=== PATIENT | female | born 1935 | race Caucasian/White ===

== ENCOUNTER 2018-09-26 12:59 | Emergency (ER) | payer OTHER ==
[2018-09-26 13:28] VITALS: BMI 26.4
--- NOTE | 2018-09-26 13:42 | PDOC ---
History of Present Illness - General Chief Complaint: Pain, Acute Stated Complaint: SENT BY PCP Time Seen by Provider: 09/26/18 13:41 - History of Present Illness Initial Comments: 83 year old female with PMH of pacemaker placement and HTN presenting with epigastric abdominal pain and one episode of vomiting prior to coming here. States that she has abdominal pain quite frequently in her epigastrium that resolves with francesco justen but hasn't resolved this time with this remedy. When trying to describe the pain exactly she points across her upper abdomen at the border of epigastrium and chest then point to her back bilaterally. She originally stated that the pain started at 1 AM but later told us that it actually has been happening over the last few days. 09/26/18 14:30 Past History - Past Medical History Allergies/Adverse Reactions: Allergies Allergy/AdvReac Type Severity Reaction Status Date / Time No Known Allergies Allergy Verified 09/26/18 13:29 Home Medications: Ambulatory Orders Atorvastatin Calcium [Lipitor] 20 mg PO HS 09/26/18 Hydrochlorothiazide [Hctz -] 12.5 mg PO DAILY 09/26/18 Olmesartan Medoxomil [Benicar (Nf)] 40 mg PO DAILY 09/26/18 COPD: No HTN: Yes Hypercholesterolemia: Yes - Surgical History Cardiac Surgery: Yes (pcmkr) - Suicide/Smoking/Psychosocial Hx Smoking History: Never smoked Review of Systems - Review of Systems Constitutional: No: Chills, Diaphoresis HEENTM: No: Eye Pain, Blurred Vision Respiratory: No: Cough, Orthopnea, Shortness of Breath Cardiac (ROS): No: Chest Pain, Edema, Irregular Heart Rate ABD/GI: Yes: Nausea, Vomiting. No: Diarrhea : No: Burning, Dysuria, Discharge Integumentary: No: Lesions, Lumps Neurological: No: Headache, Numbness, Paresthesia Psychiatric: No: Anxiety, Depression Hematologic/Lymphatic: No: Anemia, Blood Clots, Easy Bleeding *Physical Exam - Vital Signs Last Vital Signs Temp Pulse Resp BP Pulse Ox 98.5 F 67 26 H 155/68 98 09/26/18 13:27 09/26/18 13:27 09/26/18 13:27 09/26/18 13:27 09/26/18 13:27 - Physical Exam General Appearance: Yes: Nourished, Appropriately Dressed, Apparent Distress HEENT: positive: EOMI, ETTA, Normal ENT Inspection, Normal Voice Neck: positive: Trachea midline, Normal Thyroid, Supple. negative: Tender, Rigid Respiratory/Chest: positive: Lungs Clear, Normal Breath Sounds. negative: Chest Tender, Respiratory Distress, Accessory Muscle Use Cardiovascular: positive: Regular Rhythm, Regular Rate Gastrointestinal/Abdominal: positive: Normal Bowel Sounds, Tender (epigastric and RUQ tenderness), Flat, Soft Lymphatic: negative: Adenopathy, Tenderness Musculoskeletal: positive: Normal Inspection. negative: CVA Tenderness, Decreased Range of Motion Extremity: positive: Normal Capillary Refill, Normal Inspection, Normal Range of Motion. negative: Tender Integumentary: positive: Normal Color, Dry, Warm Neurologic: positive: Fully Oriented, Alert, Normal Mood/Affect, Normal Response , Motor Strength 5/5 Moderate Sedation - Procedure Monitoring Vital Signs: Procedure Monitoring Vital Signs Temperature 98.5 F 09/26/18 13:27 Pulse Rate 67 09/26/18 13:27 Respiratory Rate 26 H 09/26/18 13:27 Blood Pressure 155/68 09/26/18 13:27 O2 Sat by Pulse Oximetry (%) 98 09/26/18 13:27 ED Treatment Course - LABORATORY CBC & Chemistry Diagram: 09/26/18 15:00 09/26/18 15:00 Medical Decision Making - Medical Decision Making 83 year old female with PMH of HTN presenting with acute on subacute RUQ / epigastric pain. She does also admit to pyelonephritis on the right side in the past. We were originally concerned for dissection vs. colecystitis vs. nephrolithiais. CTA abdomen/ pelvis demonstrating right sided hydropnephritis with multiple lesions in right ureter and bladder concerning for uroepithelial cancer. We Spoke to Augie and he felt that the patient could be discharged and followed up tomorrow as an outpatient in his office. Her pain improved with Tylenol and her labs and UA were not impressive for any other pathology. The patient and the family were explained the results and they understood thoroughly. They will be discharged with follow up instructions Tylenol for pain control instructions and return precautions. 09/26/18 18:37 *DC/Admit/Observation/Transfer Diagnosis at time of Disposition: Hydronephrosis Qualifiers: Hydronephrosis type: other Qualified Code(s): N13.39 - Other hydronephrosis - Discharge Dispostion Disposition: HOME Condition at time of disposition: Improved Decision to Admit order: No - Referrals Referrals: Williams Evans MD [Primary Care Provider] - Oleksandr Lopez MD [Staff Physician] - - Patient Instructions Printed Discharge Instructions: Hydronephrosis -- Adult Additional Instructions: Please use tylenol for your pain. You have a blockage of our kidney with a mass that we have to evaluate further. We are concerned that this could be a tumor or cancer. However, we have to do further workup. Please follow up with Dr. Lopez tomorrow with the information on this contact sheet. - Post Discharge Activity
--- NOTE | 2018-09-26 13:49 | PDOC ---
Attending Attestation - HPI HPI: 09/26/18 14:44 The patient is a 83 year old female with a significant PMH of pacemaker and HTN who presents to the emergency department with chest pain, epigastric pain and one episode of NB, NB vomit since 1AM this morning. Patient states she had sudden onset of these symptoms, and awoke her daughter up at 4:30AM to help her address these symptoms as they became severe. Patients daughter gave patient francesco justen and applies warm compresses to the chest and abdomen with no improvement of her symptoms. Patient reports the chest and epigastric pain is upper to her upper back. Patient notes she has had similar epigastric pain in the past that typically resolves after drinking francesco justen. Denies any abdominal surgeries. Patient states that two days ago she had lower lip numbness that resolved on its own. The patient denies shortness of breath, headache and dizziness. Denies fever, chills, nausea, diarrhea and constipation. Denies dysuria, frequency, urgency and hematuria. Allergies: NKA Past surgical history: pacemaker Social history: No reported alcohol, drug or cigarette use. PCP: Dr. Williams Evans <Galina Forrest - Last Filed: 09/26/18 14:44> - Physicial Exam PE: 09/26/18 15:16 Agree with resident exam. patient is alert and oriented and appears mildly uncomfortable. + mild epigastric tenderness. Abdomen is soft and non distended. Lugs are clear. Heart regular rate and rhythm. No CVA tenderness. - Medical Decision Making 09/26/18 15:37 Pt presents to the ED complaining of abdominal pain and chest pain that started abruptly last night. Appears uncomfortable in the ED. Differential includes AAA or disection, pancreatitis, biliary disease, less likely ACS. Will check labs and cardiac enzymes. GIven concern for dissection, will check CTA. Will give pain and nausea control. 09/26/18 16:17 <Norma Almeida - Last Filed: 09/26/18 16:20>
[2018-09-26] MEDS ORDERED: morphine CARPU-JECT 2 MG/1 ML DISP.SYRIN IVPUSH ONE (14:28)
[2018-09-26] MEDS ORDERED: ACETAMINOPHEN INJECTION 100 ML IVPB ONE (15:00)
[2018-09-26] MEDS ORDERED: MORPHINE SULFATE 2 MG/ML VIAL ONE (15:00)
[2018-09-26 15:08] LABS: BASO % 0.8 % (0-2.0); EOS % 0.8 % (0-4.5); HEMATOCRIT 39.7 % (32.4-45.2); HEMOGLOBIN 13.7 GM/dL (10.7-15.3); LYMPH % 24.1 % (8-40); MCHC 34.6 g/dl (32.0-36.0); MEAN CELL VOLUME 92.4 fl (80-96); MONO % 9.3 % (3.8-10.2); PLATELET COUNT 167 K/MM3 (134-434); RDW 13.1 % (11.6-15.6); WHITE BLOOD COUNT 7.7 K/mm3 (4.0-10.0)
[2018-09-26] MEDS ORDERED: ACETAMINOPHEN 1000 MG/100 ML VIAL (NON FORMULARY) IVPB ONE (15:21)
[2018-09-26 15:37] LABS: ALBUMIN 3.6 g/dl (3.4-5.0); ALK PHOS 64 U/L (45-117); AMYLASE 86 U/L (25-115); ANION GAP 7 MMOL/L (8-16); BILIRUBIN,DIRECT 0.1 mg/dL (0.0-0.2); BILIRUBIN,TOTAL 0.6 mg/dL (0.2-1); BLOOD UREA NITROGEN 24 mg/dL (7-18); CALCIUM 9.1 mg/dL (8.5-10.1); CHLORIDE 104 mmol/L (98-107); CO2 31 mmol/L (21-32); CREATININE 1.3 mg/dL (0.55-1.3); GLUCOSE,RANDOM 85 mg/dL (74-106); LIPASE 193 U/L (73-393); SGOT/AST 28 U/L (15-37); SGPT/ALT 19 U/L (13-61); SODIUM 143 mmol/L (136-145); TOT PROT 6.7 g/dl (6.4-8.2)
[2018-09-26 17:32] LABS: URINE APPEARANCE CLEAR; URINE BILIRUBIN NEGATIVE (<2.0 mg/dL); URINE COLOR STRAW; URINE GLUCOSE (UA) NEGATIVE (NEGATIVE); URINE KETONE NEGATIVE (NEGATIVE); URINE LEUK ESTERASE 1+ (NEGATIVE); URINE NITRITE NEGATIVE (NEGATIVE); URINE PROTEIN NEGATIVE (NEGATIVE); URINE UROBILINOGEN NEGATIVE mg/dL (0.2-1.0)
[2018-09-26 17:41] LABS: EPI CELLS RARE /HPF (FEW); URINE MUCUS RARE
[2018-09-26 18:51] VITALS: BP 130/63; PULSE 62; TEMP 98.8
--- NOTE | 2018-09-27 10:06 | EKG ---
Test Reason : Blood Pressure : / mmHG Vent. Rate : 062 BPM Atrial Rate : 063 BPM P-R Int : 210 ms QRS Dur : 080 ms QT Int : 428 ms P-R-T Axes : -43 015 028 degrees QTc Int : 434 ms Atrial-paced rhythm with prolonged AV conduction NONSPECIFIC ST AND T WAVE ABNORMALITY ABNORMAL ECG WHEN COMPARED WITH ECG OF 01-SEP-2009 03:12, T WAVE VARIATION Confirmed by THO DIOP, MARIBETH ([id number]) on 09/27/2018 10:06:13 AM Referred By: Confirmed By:MARIBETH NETTLES MD
== END 2018-09-26 20:32 | disposition home or self-care (01) ==
LOC: JER 12:59
PROC: 3E033NZ Introduction of Analgesics, Hypnotics, Sedatives into Peripheral Vein, Percutaneous Approach (ICD-10-PCS; principal; 2018-09-26)
DX: N13.39 Other hydronephrosis (principal); I10 Essential (primary) hypertension; Z95.0 Presence of cardiac pacemaker
CPT/HCPCS: 36415; 71275-TC; 74175-TC; 80053; 81003; 81015; 82150; 82248; 83605; 83690; 84484; 85025; 93005; 93010; 96374; 99284-25; J0131

== ENCOUNTER 2018-10-29 08:48 | Day surgery (SDC) | payer OTHER ==
[2018-10-28 12:47] VITALS: BMI 26.4
[2018-10-29] MEDS ORDERED: PROPOFOL 20 ML ONE ×2 (10:22)
[2018-10-29] MEDS ORDERED: LIDOCAINE HCL/PF 2% SDV 5ML VIAL ONE (10:22)
[2018-10-29] MEDS ORDERED: DESFLURANE GAS 240 ML BOTTLE IH ONE (10:24)
[2018-10-29] MEDS ORDERED: LIDOCAINE HCL 2% (20ML MULTI-DOSE VIAL) NR ONE (10:24)
[2018-10-29] MEDS ORDERED: ceFAZolin SODIUM 1 GM VIAL IVPB ONE (10:37)
--- NOTE | 2018-10-29 11:15 | OP ---
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 4 cm wide X 5cm height. Post-Operative Diagnosis: Same as Pre-op Surgeon: Acacia Evans Anesthesia: General Specimens Removed: urine cytology, Bladder tumor chips Estimated Blood Loss (mls): 10 Drains & Tubes with Location: 20 Fr 5cc mendez Drains, Volume Out (mls): 0 Blood Volume Replaced (mls): 0 Fluid Volume Replaced (mls): 0 Operative Report Dictated: Yes
[2018-10-29] MEDS ORDERED: oxyCODONE HCL 5 MG TABLET PO PRN (11:18)
[2018-10-29] MEDS ORDERED: PROMETHAZINE HCL 25 MG/1 ML VIAL IVPUSH PRN (11:18)
[2018-10-29] MEDS ORDERED: ONDANSETRON 4 MG/2 ML VIAL IVPUSH PRN (11:18)
--- NOTE | 2018-10-29 11:43 | OP ---
DATE OF OPERATION: 10/29/2018 PREOPERATIVE DIAGNOSIS: Bladder tumor. POSTOPERATIVE DIAGNOSIS: Bladder tumor. OPERATIVE PROCEDURE: Transurethral resection of bladder tumor, attempted right ureteral orifice cannulization. ANESTHESIA: General. Under above-stated anesthesia patient was prepped and draped in the usual sterile manner. She was placed in the dorsal lithotomy position. Inspection of the external genitalia revealed atrophic vaginitis with meatal stenosis. Therefore, the meatus was calibrated to 12-Ukrainian and dilated to 28-Ukrainian without difficulty or bleeding. A cystoscope was introduced. Urine was collected for cytology. Inspection of the bladder revealed a large tumor at the right lateral wall and right hemitrigone of the bladder. Left ureteral orifice was within normal limits with efflux of clear urine. Right ureteral orifice was unable to be visualized. A resectoscope was inserted and resection of the tumor was performed in the usual fashion. Tumor chips were evacuated with an 422 Group evacuator. The base was cauterized. No active bleeding was noted. A 20-Ukrainian Weathers 5-mL balloon was inserted. This was connected to a bag. The patient tolerated the procedure well. She returned to the recovery room in good condition. Zach [id number]
[2018-10-29 12:42] VITALS: TEMP 97.5
[2018-10-29 14:00] VITALS: BP 140/79; PULSE 62
--- NOTE | 2018-11-02 18:11 | PATH ---
Cytology Non-Gynecological Report Patient Name: NOREEN COOPER [facility]. Rec. #: [id number] /Age/Gender: 1935 (Age: 83) / F Account: [id number] Location: [facility] Taken: 10/29/2018 Received: 10/29/2018 Reported: 11/02/2018 Physicians: Acacia Evans M.D. Specimen(s) Received URINE Clinical History Bladder mass Final Diagnosis URINE FOR CYTOLOGY: SATISFACTORY FOR EVALUATION. ATYPICAL UROTHELIAL FRAGMENTS. RARE CLUSTERS AND FRAGMENTS OF UROTHELIAL CELLS WITH INCREASED NUCLEUS TO CYTOPLASMIC RATIO AND MILD NUCLEAR IRREGULARITIES. SEE COMMENT. Comment: Presence of urothelial fragments is suggestive of a papillary neoplasm. See concurrent bladder biopsy ([id number]). Electronically Signed Samaria Cotton M.D. Gross Description Approximately 50 cc of yellow fluid received fresh. One cytofunnel prepared and Pap stained.
--- NOTE | 2018-11-02 18:27 | PATH ---
Surgical Pathology Report Patient Name: NOREEN COOPER [facility]. Rec. #: [id number] /Age/Gender: 1935 (Age: 83) / F Account: [id number] Location: [facility] Taken: 10/29/2018 Received: 10/29/2018 Reported: 11/02/2018 Physicians: Acacia Evans M.D. Specimen(s) Received BLADDER TUMOR Clinical History Bladder tumor, hydronephrosis Final Diagnosis BLADDER TUMOR, TRANSURETHRAL RESECTION OF BLADDER TUMOR: HIGH GRADE PAPILLARY UROTHELIAL CARCINOMA, NON-INVASIVE. MUSCULARIS PROPRIA IDENTIFIED. NO FLAT CARCINOMA IN SITU (CIS) IDENTIFIED.SEE COMMENT. Comment: The biopsy shows focal high grade areas in a background of low grade urothelial carcinoma. No definitive invasion identified. Deeper levels have been examined. Findings discussed with Dr. Padilla. Case seen interdepartmentally. See concurrent cytology ([id number]). Electronically Signed Samaria Lawton M.D. Gross Description Received in formalin labeled "bladder tumor," is a 1.5 x 1.2 x 0.3 cm aggregate of multiple ugalde, irregular to polypoid portions of soft tissue. The formalin is filtered and the specimen is entirely submitted in one cassette. /10/29/2018 saudi10/29/2018
== END 2018-10-29 14:15 | disposition home or self-care (01) ==
LOC: JASU-SURG 08:48
PROVIDERS: ATTEND Urology
PROC: 0T5B8ZZ Destruction of Bladder, Via Natural or Artificial Opening Endoscopic (ICD-10-PCS; principal; 2018-10-29 10:00)
DX: C67.9 Malignant neoplasm of bladder, unspecified (principal)
CPT/HCPCS: 88108; 88305-TC; 94760

== ENCOUNTER 2019-02-25 11:00 | Day surgery (SDC) | payer OTHER ==
[2019-02-24 12:09] VITALS: BMI 26.4
[2019-02-25] MEDS ORDERED: LIDOCAINE HCL/PF 2% SDV 5ML VIAL ONE (12:17)
[2019-02-25] MEDS ORDERED: PROPOFOL 20 ML ONE ×2 (12:17)
[2019-02-25] MEDS ORDERED: ceFAZolin SODIUM 1 GM VIAL IVPB ONE (12:25)
[2019-02-25] MEDS ORDERED: KETOROLAC TROMETHAMINE 30 MG/1 ML VIAL ONE (12:48)
[2019-02-25] MEDS ORDERED: ceFAZolin SODIUM 1 GM VIAL ONE (12:48)
[2019-02-25] MEDS ORDERED: DEXAMETHASONE SOD PHOSPHATE 4 MG/1 ML VIAL ONE (12:49)
[2019-02-25] MEDS ORDERED: ONDANSETRON 4 MG/2 ML VIAL IVPUSH PRN (13:05)
[2019-02-25] MEDS ORDERED: PROMETHAZINE HCL 25 MG/1 ML VIAL IVPUSH PRN (13:05)
[2019-02-25] MEDS ORDERED: oxyCODONE HCL 5 MG TABLET PO PRN (13:05)
--- NOTE | 2019-02-25 13:56 | OP ---
Operative Note - Note: Operative Date: 02/25/19 Pre-Operative Diagnosis: rt. hydronephrosis, h/o tcc off bladder, s/p turbt Operation: cysto, dil. attempted rt. retrograde pyelogram, and ureteroscopy. Findings: bladder scar tissue at site of previous turbt and meatal stenosis and atrophic vaginitis Post-Operative Diagnosis: Same as Pre-op Surgeon: Acacia Evans Anesthesia: General Specimens Removed: urine for cytology Estimated Blood Loss (mls): 0 Drains & Tubes with Location: none Drains, Volume Out (mls): 0 Blood Volume Replaced (mls): 0 Fluid Volume Replaced (mls): 0 Operative Report Dictated: Yes
[2019-02-25 15:25] VITALS: BP 151/82; PULSE 64; TEMP 97.8
--- NOTE | 2019-02-25 16:02 | CONS ---
DATE OF CONSULTATION: DATE OF DICTATION: 02/25/2019 HISTORY OF PRESENT ILLNESS: The patient is an 83-year-old female with history of right flank pain. An ultrasound of the kidneys revealed a right severe hydroureteronephrosis with no point of obstruction. PAST MEDICAL HISTORY: The patient does have history of high blood pressure. She also has hyperlipidemia. ALLERGIES: She denies any allergies. PAST SURGICAL HISTORY: She had a permanent pacemaker placed in 2008. She is status post a cystoscopy with a TUR of bladder tumor in October 2018. REVIEW OF SYSTEMS: She denies any hematuria. PHYSICAL EXAMINATION: General: A well-developed, alert, oriented female in no apparent distress. Head, eyes, ears, nose and throat: Normal. Chest: Clear. Heart: Regular. Abdomen: Soft. There is some mild right CVA tenderness. Extremities: Full range of motion, with no cyanosis, clubbing or edema. MEDICATIONS: The patient is on Benicar for her high blood pressure. PLAN: The procedure has been explained to the patient, as well as the patient's daughter, and she agrees. Zach [id number]
--- NOTE | 2019-02-26 04:34 | OP ---
DATE OF OPERATION: DATE OF DICTATION: 02/25/2019 PREOPERATIVE DIAGNOSIS: Patient is an 83-year-old female with a history of transitional cell carcinoma of urinary bladder, status post TUR bladder tumor, history of right hydroureteronephrosis. OPERATIVE PROCEDURE: Cystoscopy, attempted right retrograde pyelogram, attempted ureteroscopy, urethral dilation, collection of urine for cytology. ANESTHESIA: General. DESCRIPTION OF PROCEDURE: Under above-stated anesthesia patient was prepped and draped in the usual sterile manner. She was placed in the dorsal lithotomy position. Inspection of the external genitalia revealed atrophic vaginitis. There was a grade 1 cystocele and meatal scarring. The meatus was calibrated to 16-Turkish. This was dilated to 28-Turkish with Gladstone sounds without difficulty or bleeding. The cystoscope was introduced under direct vision. Urine was collected for cytology and C & S. Inspection of the bladder revealed a generalized hyperemia. Left ureteral orifice was visualized. Efflux of urine was clear. There was a grade 2 trabeculation. No overt lesions or calculi were seen. Inspection of the right ureteral orifice was unsuccessful. Multiple attempts at cannulating what appeared to be a right ureteral orifice were unsuccessful. Ureteroscope was introduced and under direct vision multiple hypertrophied muscle bundles were poked with a curved glidewire to find the right ureteral orifice. This was also unsuccessful. Patient was then given methylene blue and 15 minutes later blue efflux of urine was noted from the left side. No efflux of urine was seen from the right side. Therefore, the bladder was emptied. The scope was removed. The patient tolerated the procedure well. She will be scheduled for a right percutaneous nephrostomy with possible internalization of a double-J stent. Will schedule with Dr. Alvarez, interventional radiologist. Zach [id number]
--- NOTE | 2019-03-01 20:10 | PATH ---
Cytology Non-Gynecological Report Patient Name: NOREEN COOPER Med. Rec. #: [id number] /Age/Gender: 1935 (Age: 83) / F Account: [id number] Location: [facility] Taken: 02/25/2019 Received: 02/25/2019 Reported: 03/01/2019 Physicians: Acacia Evans M.D. Specimen(s) Received URINE Clinical History Bladder tumor Final Diagnosis URINE FOR CYTOLOGY: SATISFACTORY FOR EVALUATION. NEGATIVE FOR HIGH GRADE UROTHELIAL CARCINOMA. FEW UROTHELIAL FRAGMENTS. SCATTERED UROTHELIAL CELLS AND FEW UROTHELIAL FRAGMENTS PRESENT. Comment: Urothelial fragments are suggestive of prior instrumentation. Suggest clinical correlation. History of bladder carcinoma noted. Prior materials are noted. Electronically Signed Samaria Cotton M.D. Gross Description Approximately 100 cc of yellow fluid received fresh. One cytofunnel prepared and Pap stained. One cellblock prepared.
== END 2019-02-25 15:05 | disposition home or self-care (01) ==
LOC: JASU-SURG 11:00
PROVIDERS: ATTEND Urology
PROC: BT1DYZZ Fluoroscopy of Right Kidney, Ureter and Bladder using Other Contrast (ICD-10-PCS; principal; 2019-02-25 12:30)
DX: N13.39 Other hydronephrosis (principal); Z85.51 Personal history of malignant neoplasm of bladder; Z53.8 Procedure and treatment not carried out for other reasons
CPT/HCPCS: 76000-TC-FY; 88108; 94760

== ENCOUNTER 2020-04-28 09:33 | Emergency (ER) | payer OTHER ==
[2020-04-28 09:46] VITALS: TEMP 97.9; BMI 27.3
[2020-04-28] MEDS ORDERED: LIDOCAINE 5% TOPICAL PATCH TP ONE (10:38)
[2020-04-28] MEDS ORDERED: ACETAMINOPHEN 325 MG TABLET (FP) PO ONE (10:38)
[2020-04-28] MEDS ORDERED: LIDOCAINE 5% TOPICAL PATCH ONE (10:50)
[2020-04-28] MEDS ORDERED: ACETAMINOPHEN 325 MG TABLET (FP) ONE (10:50)
--- NOTE | 2020-04-28 11:03 | PDOC ---
History of Present Illness - General Chief Complaint: Pain Stated Complaint: PAIN Time Seen by Provider: 04/28/20 11:03 History Source: Patient, Family (Daughter present at bedside.) Exam Limitations: No Limitations - History of Present Illness Initial Comments: 84 y/o female presenting to [facility] ER complaining of unchanged right hip pain for the past month. Pain is localized to the lateral aspect of the hip without radiation to the right leg, midline, or abdomen. Made worse with movement and direct palpation. Also reports the pain is worse at night when in bed. Denies trauma to the area, saddle anesthesia, bowel incontinence, urinary retention, or paresthesia in her lower extremities. Was evaluated at [facility] ED last week. 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 Pt continues to have regular bowel movements without change in symptoms. Past History - Medical History Allergies/Adverse Reactions: Allergies Allergy/AdvReac Type Severity Reaction Status Date / Time No Known Allergies Allergy Verified 04/28/20 09:46 Home Medications: Ambulatory Orders Olmesartan Medoxomil [Benicar -] 40 mg PO DAILY 09/26/18 Cyclobenzaprine HCl [Flexeril -] 10 mg PO HS #7 tablet 04/28/20 Anemia: No Asthma: No Cancer: No Cardiac Disorders: Yes (arrythmia) CVA: No COPD: No CHF: No Dementia: No Diabetes: No GI Disorders: No Disorders: Yes HTN: Yes Hypercholesterolemia: Yes Liver Disease: No Seizures: No Thyroid Disease: No - Surgical History Cardiac Surgery: Yes (Pacemaker 2009 [employer]) - Reproductive History Is Patient Now?: No - Psycho-Social/Smoking History Smoking History: Unknown if ever smoked - Substance Abuse Hx (Audit-C & DAST Scrn) How often the patient has a drink containing alcohol: Never Score: In Men: 4 or > Positive; In Women: 3 or > Positive: 0 Screen Result (Pos requires Nsg. Audit-10AR): Negative In the last yr the pt used illegal drug/Rx for NonMed reason: No Score: Yes response is considered Positive: 0 Screen Result (Positive result requires Nsg. DAST-10): Negative Review of Systems - Review of Systems Able to Perform ROS?: Yes Comments:: 10 point review of systems completed. All systems negative except as noted above. *Physical Exam - Vital Signs Last Vital Signs Temp Pulse Resp BP Pulse Ox 97.9 F 72 20 165/90 99 04/28/20 09:55 04/28/20 09:55 04/28/20 09:55 04/28/20 09:55 04/28/20 09:55 - Physical Exam Vital signs and nursing notes reviewed. Constitutional- Well-developed, well-nourished adult female in no acute distress or obvious discomfort. Found semi-fowlers on hospital bed. Answered all questions appropriately and completely. Head- Normocephalic. No obvious external signs of trauma. Eyes- Sclerae white. Neck- Supple, trachea is midline. Cardiovascular / Chest- Regular rate. Respiratory- Breathing unlabored. Speaking in multi-word responses without pausing. Gastrointestinal- abdomen is soft, non-tender, non-distended. No overlying skin lesions or obvious signs of trauma. Neuro- Alert and oriented x4. Moving all four extremities spontaneously. No facial asymmetry. No slurred speech. Sensation to all four extremities intact. Lower extremity: Proximal and distal strength 5/5. Plantar flexion and dorsiflexion 5/5. MSK- Diffuse tenderness to palpation along the lateral aspect of the right hip. Also made worse with flexion and extension of the right hip. No sciatica. Skin- Warm, dry, and intact. No bruising, rashes, or other lesions overlying right hip and pelvis. Back- No midline thoracic or lumbar spinal tenderness. No paraspinal tenderness. No overlying skin lesions. - No R or L CVA tenderness. Psych- Affect- appropriate. Mood- normal. Speech was non-labored, non- pressured. ED Treatment Course - RADIOLOGY Radiology Studies Ordered: Category Date Time Status HIP & PELVIS-RIGHT [RAD] Stat Radiology 04/28/20 10:38 Ordered - Medications Given in the ED: ED Medications Discontinued Medications Generic Name Dose Route Start Last Admin Trade Name Freq PRN Reason Stop Dose Admin Acetaminophen 650 mg 04/28/20 10:38 04/28/20 10:56 Tylenol - PO 04/28/20 10:39 650 mg ONCE ONE Administration Lidocaine 1 patch 04/28/20 10:38 04/28/20 10:56 Lidoderm Patch - TP 04/28/20 10:39 1 patch ONCE ONE Administration Medical Decision Making - Medical Decision Making 84 y/o female presenting with acute on chronic atraumatic right hip pain. Reproducible with palpation and flexion/extension of the leg. Suspect likely osteoarthritis versus MSK strain. Low suspicion for fracture, dislocation, nephrolithiasis, or other intra-abdominal process. Plain films remarkable for degenerative arthritic changes without fracture or dislocation per ED wet read. Radiology report pending. UA unremarkable for nitrites, leukocyte esterase, or pyuria. Low suspicion for acute cystitis. Pt given Tylenol, Lidoderm patch, Motrin, and Flexeril. Reports improvement with pain. Will prescribe a short course of Flexeril and provide orthopedic clinic referral. Case discussed with ED Attending Dr. Rosen. Preston García M.D., PGY3 Emergency Medicine Resident Discharge - Discharge Information Problems reviewed: Yes Clinical Impression/Diagnosis: Right hip pain Condition: Good Disposition: HOME - Admission No - Additional Discharge Information Prescriptions: Cyclobenzaprine HCl [Flexeril -] 10 mg PO HS #7 tablet - Follow up/Referral Referrals: Williams Evans MD [Primary Care Provider] - Kimo Houston DO [Staff Physician] - - Patient Discharge Instructions Patient Printed Discharge Instructions: Cyclobenzaprine, DI for Hip Pain Additional Instructions: You were seen today for right hip pain. 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 It could also be a muscle spasm. I have sent a prescription for Flexeril to your pharmacy. Take as directed on the package insert. Do not exceed the recommended dosage. This may make you drowsy. You can also take over the counter Tylenol as needed for pain. Take as directed on the package insert. Do not exceed the recommended dosage. You should follow up with your primary care physician within the next two to three weeks. You can follow up with an orthopedic doctor as well. I have entered a referral for you to see Dr. Houston. You will need to call to make an appointment. The number is included in this packet. A copy of todays results are attached to this packet. Take it to the appointment so your doctor can review them. Return to the ED for new or worsening symptoms. Print Language: CHINESE - Post Discharge Activity
[2020-04-28] MEDS ORDERED: IBUPROFEN 400 MG TABLET (FP) PO ONE ×2 (12:46→12:49)
[2020-04-28] MEDS ORDERED: CYCLOBENZAPRINE HCL 10 MG TABLET (FP) PO ONE (12:47)
[2020-04-28] MEDS ORDERED: CYCLOBENZAPRINE HCL 10 MG TABLET (FP) ONE (12:49)
--- NOTE | 2020-04-28 12:57 | PDOC ---
Documentation entered by Bouchra Woodall SCRIBE, acting as scribe for Alexander Rosen MD. Alexander Rosen MD: This documentation has been prepared by the scribe, Bouchra Woodall SCRIBE, under my direction and personally reviewed by me in its entirety. I confirm that the documentation accurately reflects all work, treatment, procedures, and medical decision making performed by me. Attending Attestation - Resident Resident Name: BishopPreston - ED Attending Attestation I have performed the following: I have examined & evaluated the patient, The case was reviewed & discussed with the resident, I agree w/resident's findings & plan, Exceptions are as noted - HPI HPI: 04/28/20 11:08 84y F hx of HTN, presents with complaint of R hip pain. Pt notes pain started several weeks ago, it is worse with ambulation and sometimes worse at night, was seen at [facility] and had a neverage hip xray. Pain persitsent so they cam to the ED for evaluation. No fc/, focal numbness/tingling/weakness, urinary or bowel symtoms. No previous trauma/falls/injuries. Pt notes the pain is worse in the R hip - primarily in the buttock region and in the R anterior hip, worse with hip flexion. Pt doess note the pain sometimes starts spontaneously at night when she is in bed. - Physicial Exam PE: 04/28/20 12:57 On exam pt in distress, MSK: no focal bony tenderness in cervial, thoracic, or lumbar spine skin: no rash to affected area ext: no edema, no pain with passive ROM, no focal bony tenderenss on hip, pain with active hip flexion against resistance. some pain with exteinos of hip against resistance abd: no abd tenderness/rebound/guarding, no cva tenderness - Medical Decision Making 04/28/20 12:57 suspect muscle spasm, seemed to be exacerbated when the pt was extending her hip pushing herself to a lateral decubitus position no rashes to suggest shingles will give flexeril/lido patch ua to screen for UTI/hematuria 04/28/20 16:11 pts ua negative pt feels improved will dc with outpatient fu return precautions were discussed Discharge - Discharge Information Problems reviewed: Yes Clinical Impression/Diagnosis: Right hip pain Condition: Good Disposition: HOME - Additional Discharge Information Prescriptions: Cyclobenzaprine HCl [Flexeril -] 10 mg PO HS #7 tablet - Follow up/Referral Referrals: Kimo Houston DO [Staff Physician] - Williams Evans MD [Primary Care Provider] - - Patient Discharge Instructions Patient Printed Discharge Instructions: Cyclobenzaprine, DI for Hip Pain Additional Instructions: You were seen today for right hip pain. 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 It could also be a muscle spasm. I have sent a prescription for Flexeril to your pharmacy. Take as directed on the package insert. Do not exceed the recommended dosage. This may make you drowsy. You can also take over the counter Tylenol as needed for pain. Take as directed on the package insert. Do not exceed the recommended dosage. You should follow up with your primary care physician within the next two to three weeks. You can follow up with an orthopedic doctor as well. I have entered a referral for you to see Dr. Houston. You will need to call to make an appointment. The number is included in this packet. A copy of todays results are attached to this packet. Take it to the appointment so your doctor can review them. Return to the ED for new or worsening symptoms. Print Language: [place] - Post Discharge Activity
[2020-04-28 15:57] LABS: PH,URINE 7.5 (5.0-8.0); URINE APPEARANCE CLEAR; URINE BILIRUBIN NEGATIVE (NEGATIVE); URINE COLOR YELLOW; URINE GLUCOSE (UA) NEGATIVE (NEGATIVE); URINE KETONE NEGATIVE (NEGATIVE); URINE LEUK ESTERASE NEGATIVE (NEGATIVE); URINE NITRITE NEGATIVE (NEGATIVE); URINE PROTEIN NEGATIVE (NEGATIVE); URINE UROBILINOGEN 0.2 mg/dL (0.2-1.0)
[2020-04-28 16:37] VITALS: BP 143/73; PULSE 60
[2020-04-28] MEDS ORDERED: LIDOCAINE PATCH REMOVAL MC SCH (22:00)
== END 2020-04-28 16:37 | disposition home or self-care (01) ==
LOC: JER 09:33
DX: M25.551 Pain in right hip (principal)
CPT/HCPCS: 73523-TC-FY; 81003; 87086; 99285-25

== ENCOUNTER 2020-06-27 16:34 | Inpatient (IN) | payer OTHER ==
[2020-06-27] MEDS ORDERED: MAG HYDROX/AL HYDROX/SIMETH 30 ML UNIT-DOSE CUP PO ONE (18:23)
[2020-06-27] MEDS ORDERED: ACETAMINOPHEN 1000 MG/100 ML VIAL (NON FORMULARY) IVPB ONE (18:23)
[2020-06-27] MEDS ORDERED: FAMOTIDINE 20 MG/50 ML IVPB 20 MG/50 ML MG IVPB ONE ×2 (18:23→20:30)
[2020-06-27 18:30] LABS: BASO % 0.3 % (0-2.0); EOS % 0.6 % (0-4.5); HEMATOCRIT 38.6 % (32.4-45.2); HEMOGLOBIN 13.3 GM/dL (10.7-15.3); LYMPH % 20.7 % (8-40); MCH 31.1 pg (25.7-33.7); MCHC 34.4 g/dl (32.0-36.0); MEAN CELL VOLUME 90.3 fl (80-96); MONO % 6.8 % (3.8-10.2); NEUT % 71.6 % (42.8-82.8); PLATELET COUNT 201 K/MM3 (134-434); RBC 4.28 M/mm3 (3.60-5.2); RDW 13.1 % (11.6-15.6); WHITE BLOOD COUNT 5.5 K/mm3 (4.0-10.0)
[2020-06-27 18:36] LABS: INR 1.08 (0.83-1.09); PROTHROMBIN TIME (PATIENT) 13.3 SEC (9.7-13.0)
[2020-06-27] MEDS ORDERED: ACETAMINOPHEN INJECTION 100 ML IVPB ONE (18:44)
[2020-06-27] MEDS ORDERED: MAG HYDROX/AL HYDROX/SIMETH 30 ML UNIT-DOSE CUP ONE (18:44)
[2020-06-27 19:25] LABS: CHLORIDE 96 mmol/L (98-107); POTASSIUM 3.1 mmol/L (3.5-5.1); SODIUM 131 mmol/L (136-145)
[2020-06-27 19:28] LABS: ALBUMIN 3.8 g/dl (3.4-5.0); ANION GAP 11 MMOL/L (8-16); BLOOD UREA NITROGEN 20.6 mg/dL (7-18); CALCIUM 9.3 mg/dL (8.5-10.1); CO2 24 mmol/L (21-32); GLUCOSE,RANDOM 108 mg/dL (74-106); LIPASE 189 U/L (73-393); MAGNESIUM 2.1 mg/dL (1.8-2.4)
[2020-06-27 19:31] LABS: CREATININE 1.3 mg/dL (0.55-1.3); SGOT/AST 57 U/L (15-37); SGPT/ALT 45 U/L (13-61)
[2020-06-27] MEDS ORDERED: SODIUM CHLORIDE 1,000 ML IV STA (19:31)
[2020-06-27] MEDS ORDERED: POTASSIUM CHLORIDE TABS 10 MEQ TABLET.ER (FP) PO ONE (19:31)
[2020-06-27 19:33] LABS: TOT PROT 6.9 g/dl (6.4-8.2)
[2020-06-27 19:34] LABS: ALK PHOS 66 U/L (45-117)
[2020-06-27] MEDS ORDERED: POTASSIUM CHLORIDE TABS 20 MEQ TABLET.ER (FP) PO ONE (20:32)
[2020-06-28] MEDS ORDERED: ONDANSETRON 4 MG/2 ML VIAL IVPUSH PRN (01:14)
[2020-06-28] MEDS: DEXTROSE 5%-0.45% SALINE 1,000 ML IV SCH (01:35)
[2020-06-28 05:11] VITALS: BMI 27.5
[2020-06-28 06:27] LABS: EPI CELLS 11 /uL (0-25.1); HYALINE CASTS 0 /uL (0-3.1); PH,URINE 6.5 (5.0-8.0); URINE APPEARANCE CLEAR; URINE BACTERIA 57 /uL (0-1359); URINE BILIRUBIN NEGATIVE (NEGATIVE); URINE COLOR YELLOW; URINE GLUCOSE (UA) NEGATIVE (NEGATIVE); URINE KETONE NEGATIVE (NEGATIVE); URINE LEUK ESTERASE TRACE (NEGATIVE); URINE NITRITE NEGATIVE (NEGATIVE); URINE PROTEIN NEGATIVE (NEGATIVE); URINE RBC 4 /uL (0-23.9); URINE UROBILINOGEN 0.2 mg/dL (0.2-1.0); URINE WBC 50 /uL (0-25.8)
[2020-06-28] MEDS: PANTOPRAZOLE 40 MG TABLET PO SCH (09:43)
[2020-06-28] MEDS: HEPARIN NA (PORCINE) 5,000 UNITS/ML 1ML VIAL SQ SCH ×2 (09:43→23:02)
[2020-06-28] MEDS: SIMETHICONE 80 MG TAB.CHEW (FP) PO SCH ×4 (12:30→23:02)
[2020-06-29] MEDS: DEXTROSE 5%-0.45% SALINE 1,000 ML IV SCH ×2 (02:40→04:34)
[2020-06-29] MEDS: SIMETHICONE 80 MG TAB.CHEW (FP) PO SCH ×4 (04:33→16:06)
[2020-06-29 07:15] LABS: BASO % 0.9 % (0-2.0); EOS % 3.7 % (0-4.5); HEMATOCRIT 35.8 % (32.4-45.2); HEMOGLOBIN 12.2 GM/dL (10.7-15.3); LYMPH % 27.9 % (8-40); MCH 30.6 pg (25.7-33.7); MEAN PLT VOLUME 7.8 fl (7.5-11.1); MONO % 12.1 % (3.8-10.2); NEUT % 55.4 % (42.8-82.8); PLATELET COUNT 179 K/MM3 (134-434); RBC 3.98 M/mm3 (3.60-5.2); RDW 13.1 % (11.6-15.6); WHITE BLOOD COUNT 4.8 K/mm3 (4.0-10.0)
[2020-06-29 07:26] LABS: POTASSIUM 3.3 mmol/L (3.5-5.1)
[2020-06-29 07:33] LABS: CALCIUM 8.6 mg/dL (8.5-10.1)
[2020-06-29 07:34] LABS: BLOOD UREA NITROGEN 8.8 mg/dL (7-18)
[2020-06-29 07:37] LABS: CREATININE 1.1 mg/dL (0.55-1.3); TOT PROT 5.6 g/dl (6.4-8.2)
[2020-06-29] MEDS: HEPARIN NA (PORCINE) 5,000 UNITS/ML 1ML VIAL SQ SCH (10:34)
[2020-06-29] MEDS: PANTOPRAZOLE 40 MG TABLET PO SCH (10:34)
[2020-06-29] MEDS ORDERED: POTASSIUM CHLORIDE TABS 20 MEQ TABLET.ER (FP) PO ONE (11:57)
[2020-06-29] MEDS ORDERED: DEXTROSE 5%-0.45% SALINE 1,000 ML with POTASSIUM CHLORIDE 20 MEQ IV SCH (12:38)
[2020-06-29] MEDS ORDERED: D5-1/2NS+20 MEQ KCL - 20 MEQ/1,000 ML INFUS.BAG IV SCH (12:39)
[2020-06-29] MEDS ORDERED: KCL 10 MEQ IVPB 10 MEQ/100 ML INFUS.BAG IVPB SCH (12:45)
[2020-06-29 17:19] VITALS: BP 127/80; PULSE 74; TEMP 98.1
== END 2020-06-29 18:05 | disposition home or self-care (01) | DRG 442 ==
LOC: JER 16:34 → JERBED 20:43 → J4W 06-28 03:45
PROVIDERS: ADMIT Internal Medicine; ATTEND Internal Medicine
DX: R94.5 Abnormal results of liver function studies (principal); N13.30 Unspecified hydronephrosis; B19.10 Unspecified viral hepatitis B without hepatic coma; T46.6X5A Adverse effect of antihyperlipidemic and antiarteriosclerotic drugs, initial encounter; K29.70 Gastritis, unspecified, without bleeding; I11.0 Hypertensive heart disease with heart failure; I50.9 Heart failure, unspecified; E87.6 Hypokalemia; D35.00 Benign neoplasm of unspecified adrenal gland; Z95.0 Presence of cardiac pacemaker; R11.10 Vomiting, unspecified; E86.0 Dehydration; K21.9 Gastro-esophageal reflux disease without esophagitis
CPT/HCPCS: 36415; 71045-TC-FY; 74177-TC; 76775-TC; 80053; 81003; 82550; 82553; 83690; 83735; 83880; 84484; 85025; 85610; 87077; 87086; 87186; 93005; 93010; 99285-25; C9803; J0131; J1644; U0003

== ENCOUNTER 2021-07-30 02:12 | Inpatient (IN) | payer OTHER ==
[2021-07-30 02:31] VITALS: BMI 27.3
[2021-07-30 03:15] LABS: BASO % 0.9 % (0-2.0); EOS % 1.5 % (0-4.5); HEMATOCRIT 39.1 % (32.4-45.2); HEMOGLOBIN 13.6 GM/dL (10.7-15.3); LYMPH % 33.3 % (8-40); MCH 31.4 pg (25.7-33.7); MCHC 34.8 g/dl (32.0-36.0); MEAN CELL VOLUME 90.3 fl (80-96); MEAN PLT VOLUME 7.9 fl (7.5-11.1); MONO % 12.2 % (3.8-10.2); NEUT % 52.1 % (42.8-82.8); PLATELET COUNT 173 10^3/uL (134-434); RBC 4.33 M/mm3 (3.60-5.2); RDW 13.3 % (11.6-15.6); WHITE BLOOD COUNT 4.4 K/mm3 (4.0-10.0)
[2021-07-30 03:30] LABS: INR 1.14 (0.83-1.09); PROTHROMBIN TIME (PATIENT) 12.8 SEC (9.7-13.0)
[2021-07-30 03:33] LABS: ACTIVATED PTT 26.7 SECONDS (25.2-36.5); CHLORIDE 106 mmol/L (98-107); SODIUM 140 mmol/L (136-145)
[2021-07-30 03:35] LABS: CALCIUM 9.4 mg/dL (8.5-10.1)
[2021-07-30 03:36] LABS: ALBUMIN 3.3 g/dl (3.4-5.0); ANION GAP 11 MMOL/L (8-16); BLOOD UREA NITROGEN 23.3 mg/dL (7-18); CO2 23 mmol/L (21-32); GLUCOSE,RANDOM 93 mg/dL (74-106)
[2021-07-30 03:38] LABS: SGPT/ALT 22 U/L (13-61)
[2021-07-30 03:39] LABS: CREATININE 1.2 mg/dL (0.55-1.3); SGOT/AST 32 U/L (15-37)
[2021-07-30 03:41] LABS: BILIRUBIN,TOTAL 0.9 mg/dL (0.2-1); TOT PROT 6.9 g/dl (6.4-8.2)
[2021-07-30 03:42] LABS: ALK PHOS 63 U/L (45-117)
[2021-07-30 03:44] LABS: N-TERMINAL BNP 502.8 pg/ml (5-450)
[2021-07-30 03:45] LABS: LIPASE 119 U/L (73-393)
[2021-07-30] MEDS ORDERED: ACETAMINOPHEN 1000 MG/100 ML VIAL IVPB ONE (03:45)
[2021-07-30] MEDS ORDERED: FAMOTIDINE 20 MG/50 ML IVPB 20 MG/50 ML MG IVPB ONE (03:45)
[2021-07-30] MEDS ORDERED: SODIUM CHLORIDE 0.9% 500 ML INFUS.BAG IV ONE (03:45)
[2021-07-30] MEDS ORDERED: ACETAMINOPHEN INJECTION 100 ML IVPB ONE (03:50)
[2021-07-30 08:24] LABS: PH,URINE 7.5 (5.0-8.0); URINE APPEARANCE CLEAR; URINE BILIRUBIN NEGATIVE (NEGATIVE); URINE COLOR YELLOW; URINE GLUCOSE (UA) NEGATIVE (NEGATIVE); URINE KETONE NEGATIVE (NEGATIVE); URINE LEUK ESTERASE NEGATIVE (NEGATIVE); URINE NITRITE NEGATIVE (NEGATIVE); URINE PROTEIN NEGATIVE (NEGATIVE); URINE UROBILINOGEN 0.2 mg/dL (0.2-1.0)
[2021-07-30 11:58] LABS: MAGNESIUM 2.1 mg/dL (1.8-2.4)
[2021-07-30 12:01] LABS: CHOLESTEROL 230 mg/dL (50-200); PHOSPHOROUS 1.6 mg/dL (2.5-4.9); TRIGLYCERIDES 80 mg/dL (0-150)
[2021-07-30 12:03] LABS: LDL CHOLESTEROL (ONLY SJRH) 123 mg/dL (5-100)
[2021-07-30 12:04] LABS: HDL CHOLESTEROL 78 mg/dL (40-60)
[2021-07-31 07:05] LABS: BASO % 0.7 % (0-2.0); EOS % 3.5 % (0-4.5); HEMATOCRIT 37.1 % (32.4-45.2); HEMOGLOBIN 12.9 GM/dL (10.7-15.3); LYMPH % 27.8 % (8-40); MCH 32.1 pg (25.7-33.7); MCHC 34.8 g/dl (32.0-36.0); MEAN CELL VOLUME 92.4 fl (80-96); MEAN PLT VOLUME 7.9 fl (7.5-11.1); PLATELET COUNT 161 10^3/uL (134-434); RBC 4.01 M/mm3 (3.60-5.2); RDW 13.8 % (11.6-15.6); WHITE BLOOD COUNT 4.1 K/mm3 (4.0-10.0)
[2021-07-31 07:23] LABS: CHLORIDE 112 mmol/L (98-107); SODIUM 145 mmol/L (136-145)
[2021-07-31 07:27] LABS: ALBUMIN 2.8 g/dl (3.4-5.0); ANION GAP 6 MMOL/L (8-16); BLOOD UREA NITROGEN 25.6 mg/dL (7-18); CALCIUM 8.4 mg/dL (8.5-10.1); CO2 26 mmol/L (21-32)
[2021-07-31 07:28] LABS: GLUCOSE,RANDOM 82 mg/dL (74-106)
[2021-07-31 07:30] LABS: CREATININE 1.4 mg/dL (0.55-1.3); SGOT/AST 19 U/L (15-37); SGPT/ALT 18 U/L (13-61)
[2021-07-31 07:32] LABS: BILIRUBIN,TOTAL 0.6 mg/dL (0.2-1)
[2021-07-31 07:34] LABS: ALK PHOS 56 U/L (45-117); TOT PROT 5.9 g/dl (6.4-8.2)
[2021-07-31] MEDS: PANTOPRAZOLE 40 MG TABLET PO SCH (09:38)
[2021-07-31] MEDS: ENOXAPARIN NA (PORCINE) 40 MG/0.4 ML DISP.SYRIN SQ SCH (09:38)
[2021-07-31] MEDS: SIMETHICONE 80 MG TAB.CHEW (FP) PO SCH ×4 (09:48→21:51)
[2021-07-31] MEDS: METOCLOPRAMIDE HCL 10 MG TABLET (FP) PO SCH ×2 (10:16→17:45)
[2021-08-01] MEDS: METOCLOPRAMIDE HCL 10 MG TABLET (FP) PO SCH ×3 (06:13→17:06)
[2021-08-01 07:05] LABS: HEMATOCRIT 39.5 % (32.4-45.2); HEMOGLOBIN 13.5 GM/dL (10.7-15.3); MCH 31.7 pg (25.7-33.7); MCHC 34.3 g/dl (32.0-36.0); MEAN CELL VOLUME 92.5 fl (80-96); MEAN PLT VOLUME 8.4 fl (7.5-11.1); PLATELET COUNT 167 10^3/uL (134-434); RBC 4.27 M/mm3 (3.60-5.2); RDW 13.6 % (11.6-15.6); WHITE BLOOD COUNT 5.4 K/mm3 (4.0-10.0)
[2021-08-01 07:23] LABS: CALCIUM 9.2 mg/dL (8.5-10.1)
[2021-08-01 07:27] LABS: CREATININE 1.2 mg/dL (0.55-1.3)
[2021-08-01 07:28] LABS: TOT PROT 6.7 g/dl (6.4-8.2)
[2021-08-01 07:29] LABS: BILIRUBIN,TOTAL 0.6 mg/dL (0.2-1)
[2021-08-01 07:36] LABS: ALBUMIN 3.4 g/dl (3.4-5.0)
[2021-08-01] MEDS: ENOXAPARIN NA (PORCINE) 40 MG/0.4 ML DISP.SYRIN SQ SCH (10:43)
[2021-08-01] MEDS: SIMETHICONE 80 MG TAB.CHEW (FP) PO SCH ×4 (10:44→21:00)
[2021-08-01] MEDS: PANTOPRAZOLE 40 MG TABLET PO SCH (10:44)
[2021-08-01] MEDS ORDERED: amLODIPine BESYLATE 2.5 MG TABLET (FP) PO ONE (23:10)
[2021-08-02] MEDS: METOCLOPRAMIDE HCL 10 MG TABLET (FP) PO SCH ×2 (06:25→10:09)
[2021-08-02] MEDS ORDERED: amLODIPine BESYLATE 2.5 MG TABLET (FP) PO SCH (10:00)
[2021-08-02 10:08] VITALS: BP 147/74; PULSE 67; TEMP 98
[2021-08-02] MEDS: ENOXAPARIN NA (PORCINE) 40 MG/0.4 ML DISP.SYRIN SQ SCH (10:09)
[2021-08-02] MEDS: SIMETHICONE 80 MG TAB.CHEW (FP) PO SCH (10:09)
[2021-08-02] MEDS: PANTOPRAZOLE 40 MG TABLET PO SCH (10:09)
[2021-08-02] MEDS ORDERED: POLYETHYLENE GLYCOL (HEALTHYLAX) 3350 17 GM PACKET PO ONE (12:15)
== END 2021-08-02 12:00 | disposition home or self-care (01) | DRG 445 ==
LOC: JER 02:12 → JERBED 04:24 → INTOOBSV 04:24 → J4W 18:48 → OBSVTOIN 21:34
PROVIDERS: ADMIT Internal Medicine; ATTEND Internal Medicine
DX: K80.20 Calculus of gallbladder without cholecystitis without obstruction (principal); N13.30 Unspecified hydronephrosis; R07.9 Chest pain, unspecified; N81.10 Cystocele, unspecified; I25.10 Atherosclerotic heart disease of native coronary artery without angina pectoris; I11.0 Hypertensive heart disease with heart failure; I50.9 Heart failure, unspecified; Z95.0 Presence of cardiac pacemaker; R10.13 Epigastric pain; K76.0 Fatty (change of) liver, not elsewhere classified
CPT/HCPCS: 36415; 71045-TC-FY; 74177-TC; 76700-TC; 76856-TC; 78226-TC; 80053; 80061; 81003; 82550; 82553; 83036; 83690; 83735; 83880; 84100; 84443; 84484; 85025; 85027; 85610; 85730; 87086; 93005; 93010; 93306-TC; 99285-25; A9537; C9803; G0378; J0131; Q9967; U0003; U0005